=== PATIENT | female | born 1985 | race Two or more races ===

== ENCOUNTER 2018-02-19 15:30 | Inpatient (IN) | payer OTHER ==
[~2018-02-19] VITALS: Ht 172.7 cm; Wt 83.9 kg
[~2018-02-19 15:30] MED LIST: CEFADROXIL500 MG PO
[2018-03-20] MEDS ORDERED: PRENATAL ONE D1 EACH PO (01:10)
[2018-03-20] MEDS ORDERED: VALTREX1000 MG PO (01:10)
[2018-03-22] MEDS ORDERED: MAXFE CAPLET1 EACH PO (10:00)
== END 2018-03-23 17:25 | DRG 807 ==
LOC: LDR 03-20 00:31 → OB/GYN 03-20 00:31 → LDR 03-20 03:44 → OB/GYN 03-21 05:12
PROC: 10E0XZZ Delivery of Products of Conception, External Approach (ICD-10-PCS; principal; 2018-03-20)
PROC: 0HQ9XZZ Repair Perineum Skin, External Approach (ICD-10-PCS; 2018-03-20)
PROC: 4A1HXCZ Monitoring of Products of Conception, Cardiac Rate, External Approach (ICD-10-PCS; 2018-03-20)
DX: O70.0 First degree perineal laceration during delivery (principal); Z37.0 Single live birth; Z3A.40 40 weeks gestation of pregnancy

== ENCOUNTER → 2019-12-08 | Outpatient (CLI) | payer OTHER ==
[~2019-12-08] MED LIST changes: +MAXFE CAPLET1 EACH PO; +PRENATAL ONE D1 EACH PO; +VALTREX1000 MG PO
== END | disposition home or self-care (01) ==
LOC: PRENATAL 11:00
PROVIDERS: ATTEND Obstetrics & Gynecology Maternal & Fetal Medicine
DX: Z36.89 Encounter for other specified antenatal screening (principal); O36.80X1 Pregnancy with inconclusive fetal viability, fetus 1; Z3A.13 13 weeks gestation of pregnancy

== ENCOUNTER → 2020-01-23 | Outpatient (CLI) | payer OTHER | END | disposition home or self-care (01) | LOC: PRENATAL 01-19 08:30 | PROVIDERS: ATTEND Obstetrics & Gynecology Maternal & Fetal Medicine | DX: O35.0XX1 Maternal care for (suspected) central nervous system malformation in fetus, fetus 1 (principal); O35.3XX1 Maternal care for (suspected) damage to fetus from viral disease in mother, fetus 1; O98.512 Other viral diseases complicating pregnancy, second trimester; Z36.89 Encounter for other specified antenatal screening; Z3A.20 20 weeks gestation of pregnancy ==

== ENCOUNTER → 2020-03-22 | Outpatient (CLI) | payer OTHER | END | disposition home or self-care (01) | LOC: PRENATAL 08:00 | PROVIDERS: ATTEND Obstetrics & Gynecology Maternal & Fetal Medicine | DX: O26.843 Uterine size-date discrepancy, third trimester (principal); O35.0XX1 Maternal care for (suspected) central nervous system malformation in fetus, fetus 1; Z36.89 Encounter for other specified antenatal screening; Z3A.28 28 weeks gestation of pregnancy ==